=== PATIENT | female | born 1995 | race Asian ===

== ENCOUNTER 2019-05-07 17:47 | Emergency (ER) | payer OTHER ==
[2019-05-07] MEDS ORDERED: Sodium Chloride 0.9% 10 ML Syringe FLUSH PRN (18:11)
[2019-05-07] MEDS ORDERED: Sodium Chloride 0.9% 1,000 ML IV ONE (18:11)
--- NOTE | 2019-05-07 18:16 | EDM.PDOC ---
ED HPI GENERAL MEDICAL PROBLEM - General Chief Complaint: Syncope Stated Complaint: FAINTED Time Seen by Provider: 05/07/19 17:47 Source of Information: Reports: Patient, Family History Limitations: Reports: No Limitations - History of Present Illness INITIAL COMMENTS - FREE TEXT/NARRATIVE: Patient comes into the emergency department with complaint of syncopal episode. Patient is 15 weeks and states that she had not had a lot of oral intake over the course of last 24 hours. She describes her oral intake as less than 24 ounces. She states that she also limited her oral intake today related to being extremely busy. She was in line to order food when she became hot, dizzy, and fainted. She fell onto her right side denies hitting her head or injuring herself. Her spouse was with her and was of assistance as she was falling. She states that she was able to stand up and the dizziness did subside. Patient denies any consistent contractions or concerns with her current thus far. She has been following with a primary care provider throat . Her due date is in October. She has noted some cramping sensation in her lower abdomen today. She denies then be inconsistent or getting worse. She describes them as an frequent and random. She states that they are minor discomfort/annoyance and she is able to continue with her daily living without interruptions of them. She denies any chest pain, shortness of breath, lightheadedness, or dizziness with rest, visual changes, excessive urination, vaginal bleeding, vaginal discharge, or upper or lower extremity edema. Current patient denies any symptoms or complaints. She just wanted to be evaluated ensure that the baby was okay. Onset: Sudden Location: Reports: Other Quality: Reports: Other Improves with: Reports: Other Worsens with: Reports: None Associated Symptoms: Reports: Syncope - Related Data Allergies Allergy/AdvReac Type Severity Reaction Status Date / Time No Known Allergies Allergy Verified 05/07/19 18:22 Home Meds: Home Meds Vit #76/Iron,Carb/Fa [Prenatabs Rx] 1 tab DAILY 05/07/19 [History] ED ROS GENERAL - Review of Systems Review Of Systems: See Below Constitutional: Reports: No Symptoms HEENT: Reports: No Symptoms Respiratory: Reports: No Symptoms Cardiovascular: Reports: No Symptoms Endocrine: Reports: No Symptoms GI/Abdominal: Reports: No Symptoms : Reports: No Symptoms Musculoskeletal: Reports: No Symptoms Skin: Reports: No Symptoms Neurological: Reports: No Symptoms Psychiatric: Reports: No Symptoms Hematologic/Lymphatic: Reports: No Symptoms ED EXAM, GENERAL - Physical Exam Exam: See Below Exam Limited By: No Limitations General Appearance: Alert, WD/WN, No Apparent Distress Eye Exam: Bilateral Eye: EOMI, PERRL Head: Atraumatic, Normocephalic Neck: Normal Inspection, Supple, Non-Tender, Full Range of Motion Respiratory/Chest: No Respiratory Distress, Lungs Clear, Normal Breath Sounds, No Accessory Muscle Use, Chest Non-Tender Cardiovascular: Normal Peripheral Pulses, Regular Rate, Rhythm, No Edema Peripheral Pulses: 4+: Radial (L), Radial (R) GI/Abdominal: Normal Bowel Sounds, Other ( heart tone 150. fetus measurment 15 weeks ) Back Exam: Normal Inspection, Full Range of Motion Extremities: Normal Inspection, Normal Range of Motion, Non-Tender, No Pedal Edema, Normal Capillary Refill Neurological: Alert, Oriented, CN II-XII Intact, Normal Cognition, Normal Gait Psychiatric: Normal Affect, Normal Mood Skin Exam: Warm, Dry, Intact, Normal Color, No Rash Course - Orders/Labs/Meds Orders: Active Orders 24 hr Category Date Time Status Sodium Chloride 0.9% [Normal Saline] 1,000 ml Med 05/07/19 18:11 Ordered IV ONETIME Sodium Chloride 0.9% [Saline Flush] Med 05/07/19 18:11 Ordered 10 ml FLUSH ASDIRECTED PRN Peripheral IV Insertion Adult [OM.PC] Stat Oth 05/07/19 18:11 Ordered Medication Orders Sodium Chloride (Normal Saline) 1,000 mls @ 1,000 mls/hr IV ONETIME ONE Stop: 05/07/19 19:10 Sodium Chloride (Saline Flush) 10 ml FLUSH ASDIRECTED PRN PRN Reason: Keep Vein Open Meds: Medications Generic Name Dose Route Start Last Admin Trade Name Freq PRN Reason Stop Dose Admin Sodium Chloride 1,000 mls @ 1,000 mls/hr 05/07/19 18:11 Normal Saline IV 05/07/19 19:10 ONETIME ONE Sodium Chloride 10 ml 05/07/19 18:11 Saline Flush FLUSH ASDIRECTED PRN Keep Vein Open Departure - Departure Time of Disposition: 19:15 Disposition: Home, Self-Care 01 Clinical Impression: Dehydration during , Orthostatic hypotension Syncope Qualifiers: Syncope type: unspecified Qualified Code(s): R55 - Syncope and collapse - Discharge Information *PRESCRIPTION DRUG MONITORING PROGRAM REVIEWED*: Not Applicable *COPY OF PRESCRIPTION DRUG MONITORING REPORT IN PATIENT FRANCOISE: Not Applicable Instructions: Syncope, [id number], Second Trimester of , Dehydration , Adult, [id number] Referrals: PCP,Not In Area [Primary Care Provider] - Forms: ED Department Discharge Additional Instructions: 1. increase your water intake 2. activity and diet as tolerated 3. If not able to eat scheduled meals and snacks. Can supplement with protein or ensure drinks to help. 4.Continue to follow up as scheduled for routine OB appointments 5. Raise from the laying and sitting position slowly to prevent lightheadedness 6. If standing for long periods of time shift your weight from leg to leg to increase blood flow and reduce the risk of dropping your blood pressure 7. Call with any questions or concerns if they do arise. - My Orders Last 24 Hours: My Active Orders 05/07/19 18:11 Sodium Chloride 0.9% [Normal Saline] 1,000 ml IV ONETIME Sodium Chloride 0.9% [Saline Flush] 10 ml FLUSH ASDIRECTED PRN Peripheral IV Insertion Adult [OM.PC] Stat - Assessment/Plan Last 24 Hours: My Active Orders 05/07/19 18:11 Sodium Chloride 0.9% [Normal Saline] 1,000 ml IV ONETIME Sodium Chloride 0.9% [Saline Flush] 10 ml FLUSH ASDIRECTED PRN Peripheral IV Insertion Adult [OM.PC] Stat Assessment:: 1. Orthostatic hypotension related syncopal episode 2. Decrease water intake 3. healthy 15 weeks Plan: 1. IV inserted 2. Normal saline 1L bolus 3. Patient has no concerns or complaints. She feels that she is back to her baseline and would like to go home 4. Education provided to the patient and spouse regarding activity, diet, water intake, and follow-up care 5. All questions and concerns addressed prior to discharge
== END 2019-05-07 19:25 | disposition home or self-care (01) ==
LOC: VM.ED 17:47
DX: O99.282 Endocrine, nutritional and metabolic diseases complicating pregnancy, second trimester (principal); E86.0 Dehydration; O99.412 Diseases of the circulatory system complicating pregnancy, second trimester; I95.1 Orthostatic hypotension; Z3A.15 15 weeks gestation of pregnancy
CPT/HCPCS: 96360; 99283; J7030